=== PATIENT | male | born 1955 | race Caucasian/White ===

== ENCOUNTER 2019-09-01 06:33 | Day surgery (SDC) | payer MEDICARE ==
[2019-08-31 08:51] VITALS: BMI 23.0
[2019-09-01] MEDS ORDERED: EPINEPHrine 1 MG/ML AMP ONE (09:09)
[2019-09-01] MEDS ORDERED: Fentanyl 100 MCG/2 ML VIAL ONE (09:13)
[2019-09-01] MEDS ORDERED: Morphine 4 MG/ML VIAL ONE (10:19)
[2019-09-01] MEDS ORDERED: Hydrocodone-Acetamin 15 ML UDCUP ONE (11:25)
[2019-09-01] MEDS ORDERED: PROPOFOL 200 MG/20 ML VIAL ONE (12:16)
[2019-09-01] MEDS ORDERED: Ondansetron PF 4 MG/2 ML Vial ONE (12:16)
[2019-09-01] MEDS ORDERED: Lidocaine 1% PF 5 ML VIAL ONE (12:16)
[2019-09-01] MEDS ORDERED: Dexamethasone 20 MG/5 ML VIAL ONE (12:16)
--- NOTE | 2019-09-02 08:33 | OP ---
DATE OF PROCEDURE: 09/01/2019 PREOPERATIVE DIAGNOSES: 1. Left supraglottic mass. 2. Dysphagia. 3. Dysphonia. POSTOPERATIVE DIAGNOSES: 1. Left supraglottic mass. 2. Dysphagia. 3. Dysphonia. PROCEDURE PERFORMED: Direct laryngoscopy and biopsy. ESTIMATED BLOOD LOSS: 0 mL. COMPLICATIONS: None. ANESTHESIA: GETA. DESCRIPTION OF PROCEDURE: The patient was taken to the operating room and placed supine on the table. General endotracheal anesthesia was obtained by the Anesthesia Staff. Tube was secured in the left lower lip. The head of bed was turned. A shoulder roll was placed and the Dedo laryngoscope was introduced in the oral cavity. The oral cavity and oropharyngeal mucosa were noted to be normal. The base of tongue and oral cavity mucosa were normal. There was enlargement and edema of the left aryepiglottic fold, left arytenoid. There was ulceration of tumor into the laryngeal surface of the left lateral epiglottic surface. The true vocal cord and false vocal cord were clear of any tumors. The tumor did not extend to the midline on this left side. Biopsies were taken of this exophytic lesion and the pyriform sinuses and postcricoid mucosa were also noted to be within normal limits. The patient tolerated the procedure well. Job ID: [id number]
== END 2019-09-01 13:00 | disposition home or self-care (01) ==
LOC: SDC 06:33
PROVIDERS: ATTEND Otolaryngology Plastic Surgery within the Head & Neck
PROC: 0CBR8ZX Excision of Epiglottis, Via Natural or Artificial Opening Endoscopic, Diagnostic (ICD-10-PCS; principal; 2019-09-01)
DX: J38.7 Other diseases of larynx (principal); R59.0 Localized enlarged lymph nodes; Z79.899 Other long term (current) drug therapy; Z87.891 Personal history of nicotine dependence
CPT/HCPCS: 88305; 93005; 93010; J0171; J1100; J2001; J2270; J2405; J2704; J3010

== ENCOUNTER 2019-09-21 09:04 | Outpatient (CLI) | payer MEDICARE ==
--- NOTE | 2019-09-21 13:30 | PET ---
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 Exam requested for initial staging. TECHNIQUE: PET scanning with CT attenuation correction was performed from the vertex through the proximal thighs following the intravenous administration of 12 mCi [id number] in the left hand. COMPARISON: None. CORRELATION: None. FINDINGS: There is increased FDG localization in the left supraglottic hypopharyngeal mass with a SUV of 11. Hy permetabolic cervical lymph nodes are seen with SUV of 10 in the left Level II-III lymphadenopathy, S UV of 10 in right Level II-III lymphadenopathy, and SUV of 7.5 in the right Level V lymph node. No suhas hypermetabolism is seen in the chest, axilla, abdomen, pelvis, or inguinal regions. No hyper metabolic pulmonary nodules, liver, adrenal, or skeletal lesions are identified. There is physiologic activity in the brain and GI and tracts. The CT scan used for attenuation correction demonstrates no evidence of pleural effusions or ascites. 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 POS: JOSE
== END 2019-09-21 09:05 | disposition home or self-care (01) ==
LOC: PET 09:04
PROVIDERS: ATTEND Internal Medicine Hematology & Oncology
DX: C44.42 Squamous cell carcinoma of skin of scalp and neck (principal); C13.9 Malignant neoplasm of hypopharynx, unspecified; C77.0 Secondary and unspecified malignant neoplasm of lymph nodes of head, face and neck
CPT/HCPCS: 78815; A9552

== ENCOUNTER 2019-10-12 08:47 | Day surgery (SDC) | payer MEDICARE ==
[~2019-10-12 08:47] MED LIST: CISPLATIN IV SCH; Dexamethasone 10 MG, Ondansetron 2MG/ML MDV 10 MG in Sodium Chloride 0.9% 50 ML IVPB SCH; Dexamethasone Sod Phosphate 10 MG, Ondansetron 2MG/ML MDV 10 MG in Sodium Chloride 0.9%... IVPB SCH; MANNITOL IV SCH; SODIUM CHLORIDE 0.9% IV SCH; Sodium Chloride 0.9% 500 ML IVPB SCH
[2019-10-12] MEDS ORDERED: Sodium Chloride 0.9% 200 ML ONE (09:21)
[2019-10-12 10:36] VITALS: BP 96/47; TEMP 98.9
== END 2019-10-12 12:31 | disposition home or self-care (01) ==
LOC: ONC/OP 08:47
PROVIDERS: ATTEND Internal Medicine Hematology & Oncology
DX: Z51.11 Encounter for antineoplastic chemotherapy (principal); C32.1 Malignant neoplasm of supraglottis
CPT/HCPCS: 77386; 96361; 96367; 96375; 96413; J1100; J1453; J1642; J2150; J2405; J3480; J3490; J7050; J9060

== ENCOUNTER 2019-10-19 10:06 | Day surgery (SDC) | payer MEDICARE, OTHER ==
[~2019-10-19 10:06] MED LIST changes: -Dexamethasone 10 MG, Ondansetron 2MG/ML MDV 10 MG in Sodium Chloride 0.9% 50 ML IVPB SCH; +Sodium Chloride 0.9% 20 ML ONE
[2019-10-19 11:46] VITALS: BP 96/55; TEMP 98.6
== END 2019-10-19 13:37 | disposition home or self-care (01) ==
LOC: ONC/OP 10:06
PROVIDERS: ATTEND Internal Medicine Hematology & Oncology
DX: Z51.11 Encounter for antineoplastic chemotherapy (principal); C32.1 Malignant neoplasm of supraglottis
CPT/HCPCS: 36415; 80053; 82248; 83615; 83735; 84100; 84550; 96361; 96366; 96367; 96376; 96413; J1100; J1453; J1642; J2150; J2405; J3480; J3490; J7050; J9060

== ENCOUNTER → 2019-11-04 | Day surgery (SDC) | payer MEDICARE, OTHER ==
[~2019-11-04] MED LIST changes: -Sodium Chloride 0.9% 20 ML ONE
== END ==
LOC: ONC/OP 09:27
PROVIDERS: ATTEND Internal Medicine Hematology & Oncology
DX: Z51.11 Encounter for antineoplastic chemotherapy (principal); C10.1 Malignant neoplasm of anterior surface of epiglottis
CPT/HCPCS: 80053; 82248; 83615; 83735; 84100; 84550; 96365; J1100; J1453; J2405; J3480; J3490; J7050

== ENCOUNTER 2020-10-26 13:08 | Day surgery (SDC) | payer MEDICARE ==
[2020-10-26] MEDS ORDERED: Iopamidol 300 61% 50 ML VIAL FS ONE (15:01)
[2020-10-26 16:22] VITALS: BP 96/53; TEMP 97.4
== END 2020-10-26 16:00 | disposition home or self-care (01) ==
LOC: SPEC 13:08
PROVIDERS: ATTEND Surgery
PROC: 0DP Gastrointestinal System, Removal (ICD-10-PCS; principal; 2020-10-26)
PROC: 0DHA7UZ Insertion of Feeding Device into Jejunum, Via Natural or Artificial Opening (ICD-10-PCS; 2020-10-26)
DX: K94.23 Gastrostomy malfunction (principal); C32.1 Malignant neoplasm of supraglottis
CPT/HCPCS: 49450; 49465; 75984; Q9967

== ENCOUNTER 2020-12-21 10:43 | Outpatient (CLI) | payer MEDICARE | END 2020-12-21 10:44 | disposition home or self-care (01) | LOC: BICRAD 10:43 | PROVIDERS: ATTEND Radiology Radiation Oncology | DX: C32.1 Malignant neoplasm of supraglottis (principal); J44.9 Chronic obstructive pulmonary disease, unspecified | CPT/HCPCS: 71046 ==